=== PATIENT | female | born 1980 | race Caucasian/White ===

== ENCOUNTER 2021-02-19 12:11 | Emergency (ER) | payer SELFPAY ==
[2021-02-19] MEDS ORDERED: Metoclopramide 10 MG/2 ML SDV IVPUSH ONE (12:57)
[2021-02-19] MEDS ORDERED: HYDROmorphone 0.5 MG/0.5 ML Syringe IVPUSH ONE (12:57)
[2021-02-19] MEDS ORDERED: diphenhydrAMINE 50 MG/ML SDV IVPUSH ONE (12:57)
--- NOTE | 2021-02-19 12:59 | EDM.PDOC ---
ED HPI GENERAL MEDICAL PROBLEM - General Chief Complaint: Eye Problems Stated Complaint: RT EYE COMPLAINT Time Seen by Provider: 02/19/21 12:44 Source of Information: Reports: Patient, Family (spouse) History Limitations: Reports: No Limitations - History of Present Illness INITIAL COMMENTS - FREE TEXT/NARRATIVE: 40-year-old female presents to the ED with acute onset of right eye symptomatology. She states abruptly she developed loss of vision in her right eye and subsequently vision has returned with scotomata, flashing lights and floaters like behavior. Subsequently she has now developed a retro-orbital right temporal frontal throbbing pounding headache combined with migraine. Associated nausea without vomiting yet. Vision has returned to near normal. She states eye symptoms lasted about 35 minutes. She has experienced this in the past over the last year she has been experiencing more more visual auras and migraine headaches. Before this she never suffered from headaches. Onset: Today, Sudden Onset Date: 02/19/21 Onset Time: 11:55 Duration: Hour(s):, Improving (Vision is pretty well back to normal. Headache is worsening) Location: Reports: Head (Hemicranial headache particular retrobulbar and mid forehead above the right eye.) Quality: Reports: Ache, Pressure, Throbbing, Other Severity: Severe (Sitting and pounding associate with nausea development) Improves with: Reports: None ( 10 out of 10.) Worsens with: Reports: Other Context: Denies: Activity, Exercise, Lifting, Sick Contact, Trauma, Other Associated Symptoms: Reports: Loss of Appetite, Nausea/Vomiting, Other (Visual acuity changes in the right eye compatible with an aura prior to a migraine headache). 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 [No Known Home Meds] 02/19/21 [History] Past Medical History - Past Health History Medical/Surgical History: Denies Medical/Surgical History Neurological History: Reports: Migraines Social & Family History - Tobacco Use Tobacco Use Status *Q: Current Every Day Tobacco User Years of Tobacco use: 20 Packs/Tins Daily: 0.7 - Recreational Drug Use Recreational Drug Use: No - Living Situation & Occupation Living situation: Reports: Single Occupation: Employed ED ROS GENERAL - Review of Systems Review Of Systems: See Below Constitutional: Reports: Malaise, Fatigue, Decreased Appetite. Denies: Fever, Chills HEENT: Reports: Vision Change (Acute visual field changes in her right eye where she lost vision completely for about 5 to 10 minutes and then vision came back with a lot of scotomata bright flashing lights and floaters in her right eye which are slowly getting better. This occurred about an hour ago and is nearly back to normal). Denies: Ear Discharge, Eye Discharge Respiratory: Reports: No Symptoms Cardiovascular: Reports: Blood Pressure Problem (Pressure is mildly elevated at the time of initial exam.) Endocrine: Reports: No Symptoms GI/Abdominal: Reports: No Symptoms : Reports: No Symptoms Musculoskeletal: Reports: No Symptoms Skin: Reports: No Symptoms Neurological: Reports: No Symptoms Psychiatric: Reports: No Symptoms Hematologic/Lymphatic: Reports: No Symptoms Immunologic: Reports: No Symptoms ED EXAM GENERAL W FULL EYE - Physical Exam Exam: See Below Exam Limited By: No Limitations General Appearance: Alert, WD/WN, Anxious, Mild Distress, Other (Temperature is 36.5 degrees. Heart rate 89 and sinus. Respiratory is 18 with O2 sats of 98% room air. Initial BP was 144/91. It is subsequently come down to 126/81.) Eye Exam: Right Eye: A-V Nicking (No AV nicking), Bilateral Eye: Normal Fundi, Normal Inspection, PERRL, Other (You will feel examination was completely normal as well.) With Correction: No Eyelids: Bilateral: Normal Appearance Conjunctiva & Sclera: Bilateral: Normal Appearance Cornea Exam: Bilateral: Normal Appearance Extraocular Movements: Bilateral: Intact Pupils: Normal Accommodation Pupillary Size: Bilateral: 5 mm Pupillary Reaction: Bilateral: Brisk Anterior Chamber: Bilateral: Normal Appearance Posterior Chamber: Right: Normal Funduscopic (Vitreous is clear. No flame hemorrhages and no evidence clinically of a retinal detachment.) Nose: Normal Inspection Throat/Mouth: Normal Inspection, Normal Lips, Normal Teeth, Normal Oropharynx Head: Atraumatic, Normocephalic Neck: Normal Inspection, Supple, Non-Tender, Full Range of Motion Respiratory/Chest: No Respiratory Distress, Lungs Clear, Normal Breath Sounds, No Accessory Muscle Use Cardiovascular: Normal Peripheral Pulses, Regular Rate, Rhythm, No Edema, No Gallop, No Murmur, No Rub GI/Abdominal: Normal Bowel Sounds, Soft, Non-Tender, No Organomegaly, No Distention Back Exam: Normal Inspection, Full Range of Motion. No: CVA Tenderness (L), CVA Tenderness (R) Extremities: Normal Inspection, Normal Range of Motion, Non-Tender, No Pedal Edema Neurological: Alert, Oriented, CN II-XII Intact, Normal Cognition Psychiatric: Normal Affect, Normal Mood Skin Exam: Warm, Dry, Intact, Normal Color, No Rash Course - Vital Signs Last Recorded V/S: Last Vital Signs Temp 36.5 C 02/19/21 12:40 Pulse 89 02/19/21 12:40 Resp 18 02/19/21 12:40 BP 144/91 H 02/19/21 12:40 Pulse Ox 98 02/19/21 12:40 - Orders/Labs/Meds Orders: Active Orders 24 hr Category Date Time Status Dextrose 5%-0.9% NaCl [Dextrose 5%-Normal Saline] 1,000 Med 02/19/21 13:00 Active ml IV ASDIRECTED Ketorolac [Toradol] Med 02/19/21 13:00 Active 30 mg IVPUSH ONETIME Medication Orders Dextrose/Sodium Chloride (Dextrose 5%-Normal Saline) 1,000 mls @ 999 mls/hr IV ASDIRECTED MAGALY Last Admin: 02/19/21 13:04 Dose: 999 mls/hr Documented by: BROOKE Ketorolac Tromethamine (Ketorolac 30 Mg/Ml Sdv) 30 mg IVPUSH ONETIME MAGALY Last Admin: 02/19/21 13:04 Dose: 30 mg Documented by: BROOKE Meds: Medications Generic Name Dose Route Start Last Admin Trade Name Freq PRN Reason Stop Dose Admin Dextrose/Sodium Chloride 1,000 mls @ 999 mls/hr 02/19/21 13:00 02/19/21 13:04 Dextrose 5%-Normal Saline IV 999 mls/hr ASDIRECTED MAGALY Administration Ketorolac Tromethamine 30 mg 02/19/21 13:00 02/19/21 13:04 Ketorolac 30 Mg/Ml Sdv IVPUSH 30 mg ONETIME MAGALY Administration Discontinued Medications Generic Name Dose Route Start Last Admin Trade Name Jarret PRN Reason Stop Dose Admin Diphenhydramine HCl 25 mg 02/19/21 12:57 02/19/21 13:04 Diphenhydramine 50 Mg/Ml Sdv IVPUSH 02/19/21 12:58 25 mg ONETIME ONE Administration Hydromorphone HCl 0.5 mg 02/19/21 12:57 02/19/21 13:04 Hydromorphone 0.5 Mg/0.5 Ml Syringe IVPUSH 02/19/21 12:58 0.5 mg ONETIME ONE Administration Metoclopramide HCl 7.5 mg 02/19/21 12:57 02/19/21 13:04 Metoclopramide 10 Mg/2 Ml Sdv IVPUSH 02/19/21 12:58 7.5 mg ONETIME ONE Administration - Radiology Interpretation Free Text/Narrative:: 80-year-old female presents to the ED with acute onset of loss of vision in her right eye about an hour prior to coming to the ED. This lasted for between 5 to 8 minutes and then she started to regain eyesight. She had a lot of scotomata flashing lights and then some floating objects in her visual field which are now gone. Subsequently she has now developed a right retrobulbar temporal parietal headache with associated nausea. The eye examination including the fundus is completely normal with visual perez return to match mine. Clinically she has developed a classical migraine headache with visual aura. She indicates that she has been experiencing these type of headaches for the last year prior to thi s she did not have bad headaches or migraines. She is currently taking no medications from the doctor. Plan : D5 normal saline at open. She will be given Reglan 7.5 mg IV with Benadryl 25 mg IV. Toradol 30 mg IV and Dilaudid 0.5 mg IV for relief of bad migraine headache. - Re-Assessments/Exams Free Text/Narrative Re-Assessment/Exam: 02/19/21 13:36 pressure is 116/85 at this time. Departure - Departure Time of Disposition: 16:08 Disposition: Home, Self-Care 01 Condition: Fair Clinical Impression: Migraine Qualifiers: Migraine type: with aura Status migrainosus presence: without status migrainosus Intractability: not intractable Qualified Code(s): G43.109 - Migraine with aura, not intractable, without status migrainosus - Discharge Information *PRESCRIPTION DRUG MONITORING PROGRAM REVIEWED*: Not Applicable *COPY OF PRESCRIPTION DRUG MONITORING REPORT IN PATIENT RAYMOND: Not Applicable Instructions: Recurrent Migraine Headache, [id number] Referrals: PCP,None [Primary Care Provider] - Forms: ED Department Discharge Additional Instructions: Evaluation in the emergency room today in regards to acute onset of visual field deficits in the right eye with complete loss of vision initially and then gradual return to partial vision associate with flashing lights which we call scotomata. Then you developed a significant right hemicranial headache compatible with migraine headache with aura. As you indicated you have been experiencing frequent headaches every second or third day for the last year without a past history of migraine headaches. You need further investigations to make sure there is nothing else wrong metabolically could that could be causing her headaches. Is like hyper or hypothyroidism may precipitate heada ches etc. Hormonal fluctuations or imbalances can cause headaches. As we discussed watching your diet closely for potential triggers. Today suggest home to sleep for a couple of hours and then resume a regular diet and plenty of fluids. Suggest follow-up with Dr. Kenya lieberman at [facility]. You can phone [phone] to arrange an appointment at any time. Frequent headaches are often treated with medication such as Topamax daily to try to prevent the headaches from coming. Sepsis Event Note (ED) - Evaluation Sepsis Screening Result: No Definite Risk - Focused Exam Vital Signs: Vital Signs Temp Pulse Resp BP Pulse Ox 02/19/21 12:40 36.5 C 89 18 144/91 H 98 - My Orders Last 24 Hours: My Active Orders 02/19/21 13:00 Dextrose 5%-0.9% NaCl [Dextrose 5%-Normal Saline] 1,000 ml IV ASDIRECTED Ketorolac [Toradol] 30 mg IVPUSH ONETIME - Assessment/Plan Last 24 Hours: My Active Orders 02/19/21 13:00 Dextrose 5%-0.9% NaCl [Dextrose 5%-Normal Saline] 1,000 ml IV ASDIRECTED Ketorolac [Toradol] 30 mg IVPUSH ONETIME
[2021-02-19] MEDS ORDERED: Ketorolac 30 MG/ML SDV IVPUSH SCH (13:00)
[2021-02-19] MEDS ORDERED: Dextrose 5%-0.9% NaCl 1,000 ML IV SCH (13:00)
== END 2021-02-19 16:18 | disposition home or self-care (01) ==
LOC: JD.ED 12:11
DX: G43.109 Migraine with aura, not intractable, without status migrainosus (principal); Z88.0 Allergy status to penicillin; Z72.0 Tobacco use
CPT/HCPCS: 96374; 96375; 99283; J1170; J1200; J1885; J2765; J7042

== ENCOUNTER 2024-02-13 08:31 | Emergency (ER) | payer BC ==
[2024-02-13] MEDS: diphenhydrAMINE 50 MG/ML SDV IVPUSH ONE (09:21)
[2024-02-13] MEDS: methylPREDNISolone Sodium Succinate 125 MG/2 ML SDV IVPUSH ONE (09:21)
[2024-02-13] MEDS: Sodium Chloride 0.9% 10 ML Syringe FLUSH PRN (09:31)
[2024-02-13] MEDS: Loratadine 10 MG Tab PO ONE (12:29)
== END 2024-02-13 12:24 | disposition home or self-care (01) ==
LOC: JD.ED 08:31
DX: T78.40XA Allergy, unspecified, initial encounter (principal); H57.89 Other specified disorders of eye and adnexa; F17.210 Nicotine dependence, cigarettes, uncomplicated; Z88.0 Allergy status to penicillin
CPT/HCPCS: 96374; 96375; 99283; A9270; J1200; J2930; J3490

== ENCOUNTER 2024-03-12 20:18 | Emergency (ER) | payer BC ==
[2024-03-12 21:10] LABS: BASOPHILS ABSOLUTE AUTO 0.1 K/mm3 (0.0-0.2); EOSINOPHILS ABSOLUTE AUTO 0.7 K/mm3 (0.0-0.4); EOSINOPHILS PERCENT AUTO 12.9 % (0.0-6.0); HEMATOCRIT 35.2 % (37.0-47.0); HEMOGLOBIN 12.3 gm/dl (12.0-16.0); IMMATURE GRAN ABSOLUTE AUTO 0.01 K/mm3 (0.00-0.05); IMMATURE GRAN PERCENT AUTO 0.2 % (0.0-0.4); LYMPHOCYTES ABSOLUTE AUTO 0.4 K/mm3 (1.0-4.8); MEAN CORPUSCULAR HEMOGLOBIN 34.2 pg (28.0-32.0); MEAN CORPUSCULAR HGB CONC 34.9 g/dl (32.0-36.0); MEAN CORPUSCULAR VOLUME 97.8 fl (83.0-99.0); MEAN PLATELET VOLUME 9.6 fl (9.4-12.3); MONOCYTES ABSOLUTE AUTO 0.6 K/mm3 (0.0-0.8); NEUTROPHILS ABSOLUTE AUTO 3.5 K/mm3 (1.8-7.7); NEUTROPHILS PERCENT AUTO 66.9 % (41.0-71.0); PLATELET COUNT,PLT 243 K/mm3 (150-400); WHITE BLOOD CELL COUNT,WBC 5.26 K/mm3 (3.9-11.3)
[2024-03-12] MEDS: Nitroglycerin 0.4 MG Tab.SL SL PRN (21:32)
[2024-03-12 21:44] LABS: A/G RATIO 0.5 (1-2); ALBUMIN 1.9 g/dl (3.4-5.0); ANION GAP 10.4 (5-15); BILIRUBIN TOTAL 0.4 mg/dL (0.2-1.0); BUN/CREATININE RATIO 15.7 (14-18); C-REACTIVE PROTEIN 0.25 mg/dL (<0.30); CALCIUM 8.1 mg/dL (8.5-10.1); CREATININE 0.7 mg/dL (0.55-1.02); EST CRCL DRUG DOSING (CG) 98.69 mL/min; POTASSIUM,K 3.4 mEq/L (3.5-5.1); PROTEIN TOTAL,TP 5.6 g/dl (6.4-8.2)
[2024-03-12] MEDS: Iopamidol 755 Mg/ML 100 ML Bottle IVPUSH ONE (22:20)
[2024-03-12] MEDS ORDERED: Sodium Chloride 0.9% 100 ML IV SCH (22:30)
[2024-03-13] MEDS: Ketorolac 15 MG/ML SDV IVPUSH ONE (00:15)
[2024-03-13] MEDS: Sodium Chloride 0.9% 1,000 ML IV SCH (00:27)
[2024-03-13 00:55] LABS: AMPHETAMINES SCREEN, URINE NEGATIVE (CUTOFF=500); BARBITURATE SCREEN,URINE NEGATIVE (CUTOFF=200); BENZODIAZEPINES SCREEN,URINE NEGATIVE (CUTOFF=150); BUPRENORPHINE SCREEN,URINE NEGATIVE (CUTOFF=10); METHADONE SCREEN, URINE NEGATIVE (CUTOFF=200); METHAMPHETAMINES SCREEN, URINE NEGATIVE (CUTOFF=500); OXYCODONE SCREEN,URINE NEGATIVE (CUT0FF=100); THC SCREEN,URINE 20 NG/ML NEGATIVE (CUTOFF=50)
[2024-03-13] MEDS: Sulfamethoxazole/Trimethoprim 800-160 MG Tab PO ONE (01:34)
== END 2024-03-13 01:41 | disposition home or self-care (01) ==
LOC: JD.ED 20:18
DX: L03.113 Cellulitis of right upper limb (principal); I10 Essential (primary) hypertension; I25.2 Old myocardial infarction; F17.210 Nicotine dependence, cigarettes, uncomplicated; Z79.82 Long term (current) use of aspirin; Z79.899 Other long term (current) drug therapy; Z88.8 Allergy status to other drugs, medicaments and biological substances
CPT/HCPCS: 36415; 71275; 75635; 80053; 80306; 83880; 84484; 84702; 85025; 85652; 86140; 93005; 96374; 99284; A9270; J1885; J7030; Q9967

== ENCOUNTER 2024-06-02 17:01 | Emergency (ER) | payer BC ==
[2024-06-02 18:09] LABS: BASOPHILS PERCENT AUTO 0.6 % (0.0-1.0); EOSINOPHILS ABSOLUTE AUTO 0.4 K/mm3 (0.0-0.4); EOSINOPHILS PERCENT AUTO 5.1 % (0.0-6.0); HEMATOCRIT 39.7 % (37.0-47.0); HEMOGLOBIN 13.8 gm/dl (12.0-16.0); IMMATURE GRAN ABSOLUTE AUTO 0.02 K/mm3 (0.00-0.05); IMMATURE GRAN PERCENT AUTO 0.3 % (0.0-0.4); LYMPHOCYTES ABSOLUTE AUTO 0.5 K/mm3 (1.0-4.8); LYMPHOCYTES PERCENT AUTO 7.3 % (24.0-44.0); MEAN CORPUSCULAR HEMOGLOBIN 34.5 pg (28.0-32.0); MEAN CORPUSCULAR HGB CONC 34.8 g/dl (32.0-36.0); MEAN CORPUSCULAR VOLUME 99.3 fl (83.0-99.0); MEAN PLATELET VOLUME 9.7 fl (9.4-12.3); MONOCYTES ABSOLUTE AUTO 0.5 K/mm3 (0.0-0.8); NEUTROPHILS ABSOLUTE AUTO 5.8 K/mm3 (1.8-7.7); NEUTROPHILS PERCENT AUTO 79.7 % (41.0-71.0); PLATELET COUNT,PLT 258 K/mm3 (150-400); WHITE BLOOD CELL COUNT,WBC 7.26 K/mm3 (3.9-11.3)
[2024-06-02] MEDS: Sodium Chloride 0.9% 1,000 ML IV SCH (18:13)
[2024-06-02] MEDS: Phenazopyridine 95 MG Tab PO STA ×2 (18:14→21:18)
[2024-06-02 18:31] LABS: A/G RATIO 0.7 (1-2); ALBUMIN 2.4 g/dl (3.4-5.0); ANION GAP 8.5 (5-15); BILIRUBIN TOTAL 0.4 mg/dL (0.2-1.0); CREATININE 0.8 mg/dL (0.55-1.02); EST CRCL DRUG DOSING (CG) 86.36 mL/min; POTASSIUM,K 3.5 mEq/L (3.5-5.1); PROTEIN TOTAL,TP 5.9 g/dl (6.4-8.2)
== END 2024-06-02 21:12 | disposition home or self-care (01) ==
LOC: JD.ED 17:01
DX: N32.89 Other specified disorders of bladder (principal); Z96.0 Presence of urogenital implants; Z98.890 Other specified postprocedural states; I10 Essential (primary) hypertension; I25.2 Old myocardial infarction; F17.210 Nicotine dependence, cigarettes, uncomplicated; Z88.0 Allergy status to penicillin; Z79.82 Long term (current) use of aspirin; Z79.899 Other long term (current) drug therapy
CPT/HCPCS: 36415; 80053; 85025; 96360; 99284; A9270; J7030

== ENCOUNTER 2025-01-08 08:20 | Day surgery (SDC) | payer BC ==
[2025-01-08] MEDS: Lactated Ringers 1,000 ML IV SCH (08:15)
[~2025-01-08 08:20] MED LIST: Bupivacaine 0.25% 10 ML SDV ONE; Clindamycin Phosphate in D5W 900 MG in Premix Bag 1 BAG IV ONE; Dexamethasone 4 MG/ML 5 ML MDV ONE; EPINEPHrine 1 MG/ML SDV ONE; Gentamicin 360 MG in Sodium Chloride 0.9% 100 ML IV ONE; Ketorolac 30 MG/ML SDV ONE; Lidocaine 2% 5 ML SDV ONE; Ondansetron 4 MG/2 ML SDV ONE; Propofol 200 MG/20 ML SDV ONE; Ropivacaine 0.5% 5 MG/ML 30 ML SDV ONE; Sodium Chloride 0.9% 10 ML Syringe FLUSH PRN; Sodium Chloride 0.9% 10 ML Syringe FLUSH SCH; Sugammadex Sodium 200 MG/2 ML VIAL IV ONE; ceFAZolin 2 GM Vial ONE; fentaNYL 100 MCG/2 ML SDV ONE
[2025-01-08 08:28] LABS: APPEARANCE,URINE CLEAR (Clear); BILIRUBIN,URINE NEGATIVE (Negative); COLOR,URINE YELLOW (Yellow); GLUCOSE,URINE NEGATIVE (Negative); KETONES,URINE NEGATIVE (Negative); LEUKOCYTE ESTERASE,URINE NEGATIVE (Negative); NITRITE,URINE NEGATIVE (Negative); OCCULT BLOOD,URINE TRACE-INTACT (Negative); PH,URINE 6.5 (5.0-8.0); PROTEIN,URINE NEGATIVE (Negative); UROBILINOGEN,URINE 0.2 (0.2-1.0)
[2025-01-08 08:34] LABS: BACTERIA,URINE RARE /hpf (FEW); MUCUS,URINE RARE /hpf (FEW); RBC,URINE 0-5 /hpf (0-5); SQUAMOUS EPITHELIAL CELLS,UR 0-5 /hpf (0-5); WBC,URINE 0-5 /hpf (0-5)
[2025-01-08] MEDS ORDERED: Ketamine 200 MG/20 ML MDV ONE (08:54)
[2025-01-08] MEDS ORDERED: Phenylephrine 1% 10 MG/ML SDV ONE (08:59)
[2025-01-08] MEDS: Bupivacaine 0.5% 30 ML SDV ONE (09:20)
[2025-01-08] MEDS ORDERED: Lactated Ringers 1,000 ML ONE (09:35)
[2025-01-08] MEDS ORDERED: HYDROmorphone 0.5 MG/0.5 ML Syringe IVPUSH PRN (09:37)
[2025-01-08] MEDS ORDERED: Ondansetron 4 MG/2 ML SDV IVPUSH PRN (09:37)
[2025-01-08] MEDS ORDERED: fentaNYL 100 MCG/2 ML SDV IVPUSH PRN (09:37)
[2025-01-08] MEDS: EPINEPHrine 1 MG/ML SDV ONE (09:49)
[2025-01-08] MEDS: Bupivacaine 0.25% 10 ML SDV ONE (09:49)
[2025-01-08] MEDS ORDERED: Ondansetron 4 MG/2 ML SDV ONE (09:53)
== END 2025-01-08 11:45 | disposition home or self-care (01) ==
LOC: JD.SDS 08:20
PROVIDERS: ATTEND Obstetrics & Gynecology
DX: D25.9 Leiomyoma of uterus, unspecified (principal); N80.03 Adenomyosis of the uterus; D27.9 Benign neoplasm of unspecified ovary; N83.8 Other noninflammatory disorders of ovary, fallopian tube and broad ligament; N80.121 Deep endometriosis of right ovary; F41.9 Anxiety disorder, unspecified; I10 Essential (primary) hypertension; F17.200 Nicotine dependence, unspecified, uncomplicated; Z88.0 Allergy status to penicillin; Z79.82 Long term (current) use of aspirin; Z79.899 Other long term (current) drug therapy
CPT/HCPCS: 36415; 58552; 81001; 81025; 86850; 86900; 86901; J0171; J0665; J0736; J1100; J1580; J1885; J2003; J2371; J2405; J2704; J2795; J3010; J3490; J7120; 00944; 64488; J0690